=== PATIENT | female | born 1960 | race Caucasian/White ===

== ENCOUNTER 2019-11-30 17:01 | Outpatient (CLI) | payer OTHER, SELFPAY ==
--- NOTE | ~2019-11-30 | MR_ITS ---
EXAMINATION: MR brain/brain stem wo/w con DATE: 11/30/2019 18:07 INDICATION: Chronic headache TECHNIQUE: Magnetic resonance imaging (MRI) of the brain and brainstem was performed without and with 13 cc MultiHance intravenous contrast. Sequences included sagittal and axial T1-weighted SE, axial d iffusion-weighted FS SE, axial T2*-weighted GRE, axial T2-weighted FLAIR Propeller, and axial T2-weig hted Propeller. Apparent diffusion coefficient (ADC) maps were created. COMPARISON: None. FINDINGS: No acute intracranial hemorrhage, infarction, mass or mass effect. No abnormal contrast enh ancement. No ventriculomegaly or midline shift. Orbits are symmetric without disconjugate gaze. Struc tures of the posterior fossa including 7/8th cranial nerve complexes are normal. Paranasal sinuses ar e unremarkable. Midline sagittal images demonstrate a normal corpus callosum and craniovertebral junc tion. No abnormality of the sella turcica. IMPRESSION: 1. No acute intracranial abnormality. Reviewed, dictated and finalized at location A. [employer]
[2019-11-30 17:42] LABS: Blood Urea Nitrogen 17 mg/dL (8-26); Estimated Glomerular Filt Rate > 60
== END 2019-11-30 17:02 | disposition home or self-care (01) ==
PROVIDERS: PCP Physician Assistant; Visit Provider Physician Assistant
DX: R51 Headache (principal)
CPT/HCPCS: 70553; A9577

== ENCOUNTER 2021-06-07 01:59 | Day surgery (SDC) | payer OTHER, SELFPAY ==
[2021-05-24 14:42] VITALS: BMI 28.3
[2021-06-07 08:00] VITALS: BP 133/91; PULSE 104; RESP 16; TEMP 35.9; O2SAT 98
--- NOTE | 2021-06-07 08:03 | WPDANESEPPF ---
Anes - Initial Pre Proc Eval Procedure: Operation Date: 06/07/21 08:30 Proposed Procedures p Screening Colonoscopy - Raimundo Marquez MD Date/Time: 06/07/21 08:03 Surgeon: Raimundo Marquez MD Pre Op Diagnosis: neoplasm screening Patient Data Age: 60 Gender: F Height: 1.57 m Weight: 70.4 kg Allergies Allergy/AdvReac Type Severity Reaction Status Date / Time No Known Allergies Allergy Verified 06/07/21 07:58 Home Medications Medication Instructions Recorded Confirmed Type bupropion HCl 150 mg PO DAILY 05/24/21 05/24/21 History cyclobenzaprine 5 mg PO DAILY PRN 05/24/21 05/24/21 History losartan 25 mg PO DAILY 05/24/21 05/24/21 History meloxicam 15 mg PO DAILY 05/24/21 05/24/21 History mirabegron [Myrbetriq] 25 mg PO DAILY 05/24/21 05/24/21 History rosuvastatin 10 mg PO DAILY 05/24/21 05/24/21 History venlafaxine 150 mg PO DAILY 05/24/21 05/24/21 History Patient hx anesthesia problems: none Family hx anesthesia problems: none [facility] Past Medical History Medical History (Updated 06/07/21 @ 08:04 by Sb Sebastian MD) Anxiety HTN (hypertension) Hyperlipidemia Overweight (BMI 25.0-29.9) Social History Social History Alcohol use details: OCCATIONALLY Living arrangements: with family Gender identity (if verbalized by the patient): Female Spiritual care concerns: No Anes - Eval Final PreProcedure Day of Procedure 06/07/21 08:03 Patient weight: overweight Heart: regular rate and rhythm Lungs: clear to auscultation and normal air movement Airway: Mallampati scale class II Neurological: alert and oriented Last oral intake: >/= 8 hours ASA classification: II Emergent: no Anesthetic plan: proceed Anesthesia type and monitoring: general GIVS Informed Consent: The patient's anesthetic plan and its attendant risks and benefits were discussed with the patient/family/POA. Questions were solicited and answers provided to the satisfaction of the patient/family/POA.
[2021-06-07] MEDS: LACTATED RINGERS 1,000 ML 150 ML IV CONT (08:15)
--- NOTE | 2021-06-07 08:38 | WPDGICN ---
Assessment and Plan Assessment and plan (1) Encounter for screening colonoscopy: Code(s): Z12.11 - Encounter for screening for malignant neoplasm of colon Status: Acute Assessment and Plan: Patient presents for screening colonoscopy. Further recommendations will be given after colonoscopy. GI Consult Note Consult date/time: 06/07/21 08:38 HPI: Anne Marie Mathias is a 60 year old female Presents for screening colonoscopy. Patient's current weight appetite bowel movements are normal. Patient denies abdominal pain. She has had no bleeding. Family history is noncontributory. Patient reports her bowel habits are essentially normal. Last colonoscopy was in 2012. Review of Systems Review of Systems: All systems reviewed & are unremarkable except as noted in HPI and below PMFSH Past Medical History Medical History (Updated 06/07/21 @ 08:40 by Raimundo Marquez MD) Anxiety HTN (hypertension) Hyperlipidemia Overweight (BMI 25.0-29.9) Social History Social History Alcohol use details: OCCATIONALLY Living arrangements: with family Gender identity (if verbalized by the patient): Female Spiritual care concerns: No Meds Home Medications and Allergies Home Medications Medication Instructions Recorded Confirmed Type bupropion HCl 150 mg PO DAILY 05/24/21 05/24/21 History cyclobenzaprine 5 mg PO DAILY PRN 05/24/21 05/24/21 History losartan 25 mg PO DAILY 05/24/21 05/24/21 History meloxicam 15 mg PO DAILY 05/24/21 05/24/21 History mirabegron [Myrbetriq] 25 mg PO DAILY 05/24/21 05/24/21 History rosuvastatin 10 mg PO DAILY 05/24/21 05/24/21 History venlafaxine 150 mg PO DAILY 05/24/21 05/24/21 History Allergies Allergy/AdvReac Type Severity Reaction Status Date / Time No Known Allergies Allergy Verified 06/07/21 07:58 Vital Signs Vital Signs - 24 hr 06/07/21 08:00 Temperature 96.6 F L Pulse Rate 104 H Respiratory Rate 16 Blood Pressure 133/91 H Pulse Oximetry 98 Exam Narrative: Physical exam reveals patient be alert. Vital signs stable. HEENT exam is unremarkable. Patient is anicteric. Lungs are clear to auscultation and percussion. Heart is without murmur or extra sounds. Abdominal exam bowel sounds are present soft nontender with no hepatosplenomegaly. Digital external rectal exam is normal.
[2021-06-07 09:10] VITALS: BP 100/60; PULSE 99; RESP 17; O2SAT 96
[2021-06-07 09:20] VITALS: BP 112/74; PULSE 99; RESP 17; O2SAT 98
[2021-06-07 09:30] VITALS: BP 127/76; PULSE 90; RESP 19; O2SAT 100
== END 2021-06-07 09:43 | disposition home or self-care (01) ==
PROVIDERS: PCP Physician Assistant; Visit Provider Internal Medicine Gastroenterology
PROC: 0DJD8ZZ Inspection of Lower Intestinal Tract, Via Natural or Artificial Opening Endoscopic (ICD-10-PCS; CPT 45378; principal; 2021-06-07 08:30)
DX: Z12.11 Encounter for screening for malignant neoplasm of colon (principal); K64.8 Other hemorrhoids; Z83.71 Family history of colonic polyps; F41.9 Anxiety disorder, unspecified; I10 Essential (primary) hypertension; E78.5 Hyperlipidemia, unspecified
CPT/HCPCS: 45378; J2704; J7120

== ENCOUNTER 2023-11-05 06:43 | Day surgery (SDC) | payer OTHER, SELFPAY ==
[2023-10-07 14:42] VITALS: BMI 28.9
[2023-11-05 07:36] VITALS: BP 125/75; PULSE 74; RESP 16; TEMP 36.6; O2SAT 100
[2023-11-05] MEDS: LACTATED RINGERS 1,000 ML 150 ML IV CONT (07:55)
--- NOTE | 2023-11-05 08:16 | PM.HPGS ---
History of Present Illness History of Present Illness Consent: Risks, benefits, and alternatives have been discussed and questions answered. Patient agrees to proceed with procedure. Chief complaint: Unspecified Dysphagia Narrative: Anne Marie Mathias is a 63 year old female presents for EGD. Reports that food will catch when swallowing. She has noticed this intermittently over the last year. Most recently this for when eating rice. She denies any bleeding or weight loss. She denies any heartburn. Previous EGD 10 years ago was unremarkable. Patient presents today for EGD to evaluate. Review of Systems Review of Systems: Systems noncontributory. [facility] Past Medical History Medical History (Updated 10/01/23 @ 13:29 by Lamar Jordan APRN) Anxiety Colon cancer screening Dysphagia HTN (hypertension) Hyperlipidemia IBS (irritable bowel syndrome) Overweight (BMI 25.0-29.9) Social History Social History Smoking status: Never smoker Alcohol use details: 1-2 per month Substance use type: does not use Living arrangements: with family Gender identity (if verbalized by the patient): Female Spiritual care concerns: No Meds Home Medications and Allergies Home Medications Medication Instructions Recorded Confirmed Type bupropion HCl 150 mg 24 hr tablet, 150 mg PO DAILY 05/24/21 11/05/23 History extended release cyclobenzaprine 5 mg tablet 5 mg PO DAILY PRN Headache 05/24/21 11/05/23 History losartan 25 mg tablet 25 mg PO DAILY 05/24/21 11/05/23 History meloxicam 15 mg tablet 15 mg PO DAILY 05/24/21 11/05/23 History mirabegron 25 mg tablet,extended 25 mg PO DAILY 05/24/21 11/05/23 History release 24 hr (Myrbetriq) rosuvastatin 10 mg tablet 10 mg PO DAILY 05/24/21 11/05/23 History venlafaxine 150 mg 150 mg PO DAILY 05/24/21 11/05/23 History capsule,extended release 24 hr atenolol 50 mg tablet 50 mg PO DIRECTED 10/21/23 11/05/23 History calcium 1 tab-cap PO DIRECTED 10/21/23 11/05/23 History multivitamin 1 tablet PO DAILY 10/21/23 11/05/23 History Allergies Allergy/AdvReac Type Severity Reaction Status Date / Time No Known Allergies Allergy Verified 11/05/23 07:31 Vital Signs Vital Signs - 24 hr 11/05/23 07:36 Temperature 98 F Pulse Rate 74 Respiratory Rate 16 Blood Pressure 125/75 Pulse Oximetry 100 Oxygen Delivery Room Air Exam Narrative: Physical exam reveals patient will signs stable. HEENT exam is unremarkable. Patient is anicteric. Lungs are clear to auscultation and percussion. Is without murmur or extra sounds. Abdomen bowel sounds are present soft nontender with no organomegaly. Assessment and Plan Assessment and plan (1) Dysphagia: Code(s): R13.10 - Dysphagia, unspecified Status: Acute Assessment and Plan: Patient with difficulty swallowing. She states that food will catch in the upper throat area further recommendations will be given after endoscopy to exclude narrowing.
--- NOTE | 2023-11-05 09:06 | WPDANESEPPF ---
Anes - Initial Pre Proc Eval Procedure: Operation Date: 11/05/23 09:00 Proposed Procedures p Esophagogastroduodenoscopy - Raimundo Marquez MD Date/Time: 11/05/23 09:06 Surgeon: Raimundo Marquez MD Pre Op Diagnosis: Unspecified Dysphagia Patient Data Age: 63 Gender: F Height: 1.57 m Weight: 67.8 kg Last Vital Signs Temp 36.6 C 11/05/23 07:36 Pulse 74 11/05/23 07:36 Resp 16 11/05/23 07:36 BP 125/75 11/05/23 07:36 Pulse Ox 100 11/05/23 07:36 O2 Del Method Room Air 11/05/23 07:36 Allergies Allergy/AdvReac Type Severity Reaction Status Date / Time No Known Allergies Allergy Verified 11/05/23 07:31 Home Medications Medication Instructions Recorded Confirmed Type bupropion HCl 150 mg 24 hr tablet, 150 mg PO DAILY 05/24/21 11/05/23 History extended release cyclobenzaprine 5 mg tablet 5 mg PO DAILY PRN Headache 05/24/21 11/05/23 History losartan 25 mg tablet 25 mg PO DAILY 05/24/21 11/05/23 History meloxicam 15 mg tablet 15 mg PO DAILY 05/24/21 11/05/23 History mirabegron 25 mg tablet,extended 25 mg PO DAILY 05/24/21 11/05/23 History release 24 hr (Myrbetriq) rosuvastatin 10 mg tablet 10 mg PO DAILY 05/24/21 11/05/23 History venlafaxine 150 mg 150 mg PO DAILY 05/24/21 11/05/23 History capsule,extended release 24 hr atenolol 50 mg tablet 50 mg PO DIRECTED 10/21/23 11/05/23 History calcium 1 tab-cap PO DIRECTED 10/21/23 11/05/23 History multivitamin 1 tablet PO DAILY 10/21/23 11/05/23 History Patient hx anesthesia problems: none Family hx anesthesia problems: none Results Review: All pre-operative results and documents have been reviewed as part of the pre-operative evaluation. [facility], [facility] Past Medical History Medical History (Updated 10/01/23 @ 13:29 by Lamar Jordan, MIRIAM) Anxiety Colon cancer screening Dysphagia HTN (hypertension) Hyperlipidemia IBS (irritable bowel syndrome) Overweight (BMI 25.0-29.9) Social History Social History Smoking status: Never smoker Alcohol use details: 1-2 per month Substance use type: does not use Living arrangements: with family Gender identity (if verbalized by the patient): Female Spiritual care concerns: No Anes - Eval Final PreProcedure Day of Procedure 11/05/23 09:06 Patient weight: overweight Heart: regular rate and rhythm Lungs: clear to auscultation Airway: Mallampati scale class II Neurological: alert and oriented Last oral intake: >/= 8 hours ASA classification: II Emergent: no Anesthetic plan: proceed Anesthesia type and monitoring: general GIVS and standard monitoring Results Review: All pre-operative results and documents have been reviewed as part of the pre-operative evaluation. Informed Consent: The patient's anesthetic plan and its attendant risks and benefits were discussed with the patient/family/POA. Questions were solicited and answers provided to the satisfaction of the patient/family/POA.
[2023-11-05 09:21] VITALS: BP 111/66; PULSE 85; RESP 16; O2SAT 97
[2023-11-05 09:31] VITALS: BP 93/62; PULSE 85; RESP 18; O2SAT 98
[2023-11-05 09:41] VITALS: BP 108/89; PULSE 85; RESP 20; O2SAT 100
--- NOTE | 2023-11-05 11:39 | WPDANESPN ---
Anes - Prog Note Post-Op Date/Time: 11/05/23 11:39 Cardiovascular status: normal Respiratory status: normal Airway patency: baseline Mental status: baseline Post-Op hydration status: normal Vital Signs: Last Vital Signs Temp 36.6 C 11/05/23 07:36 Pulse 85 11/05/23 09:41 Resp 20 11/05/23 09:41 BP 108/89 11/05/23 09:41 Pulse Ox 100 11/05/23 09:41 O2 Del Method Room Air 11/05/23 09:41 Pain Score (VAS): 0 I/O: Intake & Output 11/04/23 11/05/23 11/05/23 23:59 07:59 15:59 Intake Total 200 Balance 200 Post-procedural complaints: none Patient Feedback: Patient satisfied with anesthetic care. Other Findings: Patient vital signs back to baseline. Patient denies nausea and vomiting. Patient's pain under control. Patient OK for discharge.
== END 2023-11-05 10:00 | disposition home or self-care (01) ==
PROVIDERS: PCP Physician Assistant; Visit Provider Internal Medicine Gastroenterology
PROC: 0DJ08ZZ Inspection of Upper Intestinal Tract, Via Natural or Artificial Opening Endoscopic (ICD-10-PCS; CPT 43235; principal; 2023-11-05 09:00)
DX: R13.19 Other dysphagia (principal); K31.84 Gastroparesis
CPT/HCPCS: 43450

== ENCOUNTER 2025-08-02 12:45 | Outpatient (CLI) | payer MEDICARE, SELFPAY ==
--- NOTE | ~2025-08-02 | MR_ITS ---
EXAMINATION: MR foot RT wo con DATE: 08/02/2025 13:15 INDICATION: Spontaneous rupture flexor tendons TECHNIQUE: Magnetic resonance imaging (MRI) of the right fore/mid foot was performed without intravenous contrast. Sequences included sagittal T1-weighted FSE, sagittal fluid sensitive FSE STIR, coronal PD-weighted FS FSE, coronal T1- weighted FSE, axial PD-weighted FS FSE, and axial PD-weighted FSE. COMPARISON: None FINDINGS: There is mild medial angulation at the second metatarsophalangeal joint head. Bone alignment is otherwise normal throughout. Partial tears of the proper an accessory collateral ligaments at the lateral side of the second metatarsophalangeal joint. Associated tear of the lateral side of the plantar plate of the second metatarsophalangeal joint with mild cystic change along the lateral plantar rim of the base of the second proximal phalanx. There is thickening and mild increased signal of the proximal aspect of the medial collateral ligament complex at the first metatarsophalangeal joint which could also be due to partial tear or chronic degeneration. Lisfranc ligament complex at the remaining collateral ligament complex at the metatarsophalangeal and interphalangeal joints are normal. Mild osteoarthritis at the first metatarsophalangeal joint. Visualized portion of the flexor and extensor tendons are normal as is the intrinsic musculature of the fore and midfoot. Minimal joint effusions at the first and second metatarsophalangeal joints. There is also mild bursitis with mild increased fluid at the intermetatarsal bursa between the heads of the first and second and second and third metatarsals. IMPRESSION: 1. Partial tear of the lateral side of the plantar plate as well as of the lateral collateral ligament complex at the second metatarsophalangeal joint with likely secondary mild medial angulation at the second metatarsophalangeal joint. Reviewed, dictated and finalized at location A. IMPRESSION: 1. Partial tear of the lateral side of the plantar plate as well as of the late ral collateral ligament complex at the second metatarsophalangeal joint with li manolo secondary mild medial angulation at the second metatarsophalangeal joint.
== END 2025-08-02 12:46 | disposition home or self-care (01) ==
LOC: MICIMG 12:47
PROVIDERS: PCP Physician Assistant; Visit Provider Podiatrist Foot & Ankle Surgery
DX: M66.371 Spontaneous rupture of flexor tendons, right ankle and foot (principal)
CPT/HCPCS: 73718